=== PATIENT | female | born 1990 | race Two or more races ===

== ENCOUNTER 2016-09-06 21:27 | Observation (INO) | payer MEDICAID ==
[~2016-09-06 21:27] MED LIST: DIPH25CA39; HYDR1CRE95
== END 2016-09-06 22:44 | disposition home or self-care (01) | DRG 566 ==
LOC: LDRP 21:27
PROVIDERS: ADMIT Obstetrics & Gynecology; ATTEND Obstetrics & Gynecology
DX: O26.893 Other specified pregnancy related conditions, third trimester (principal); R10.2 Pelvic and perineal pain; Z3A.33 33 weeks gestation of pregnancy
CPT/HCPCS: 59025; 81002; G0378

== ENCOUNTER 2016-09-11 09:50 | Observation (INO) | payer MEDICAID | END 2016-09-11 11:17 | disposition home or self-care (01) | DRG 566 | LOC: LDRP 09:50 | PROVIDERS: ADMIT Specialist; ATTEND Specialist | DX: O46.93 Antepartum hemorrhage, unspecified, third trimester (principal); O36.8130 Decreased fetal movements, third trimester, not applicable or unspecified; Z3A.34 34 weeks gestation of pregnancy | CPT/HCPCS: 59025; 76818; 81002; G0378 ==

== ENCOUNTER 2016-10-22 21:20 | Inpatient (IN) | payer MEDICAID ==
[~2016-10-22] VITALS: Ht 152.4 cm; Wt 89.8 kg
[2016-10-22] MEDS ORDERED: LACTATED RINGER'S 1,000 ML IV SCH (22:18)
[2016-10-22] MEDS ORDERED: LACT. RINGERS/OXYTOCIN 20UNITS 1,000 ML IV SCH (22:18)
[2016-10-22] MEDS ORDERED: WITCH HAZEL-GLYCERIN PAD TOP PRN (22:30)
[2016-10-22] MEDS ORDERED: PHISODERM TOP SOLN 240ML BTL TOP PRN (22:30)
[2016-10-22] MEDS ORDERED: DERMOPLAST 60ML BOTTLE TOP PRN (22:30)
[2016-10-22] MEDS ORDERED: LIDOCAINE 2%HCL (LOCAL ANESTH.) INJ 20ML MDV IJ ONE (22:30)
[2016-10-22] MEDS ORDERED: PROMETHAZINE HCL 25 MG/ML 1ML IV PRN (22:30)
[2016-10-22] MEDS ORDERED: METHYLERGONOVINE MALEATE 0.2 MG/ML AMP IM PRN (22:30)
[2016-10-22] MEDS ORDERED: NALBUPHINE HCL 10 MG/1ml INJECTION IV PRN (22:30)
[2016-10-22] MEDS ORDERED: CARBOPROST TROMETHAMINE 250 MCG/1ML VIAL IM PRN (22:30)
[2016-10-22 22:52] LABS: Basophils # (auto) 0 uL; Basophils % (auto) 0.2 % (0.0-2.0); Eosinophils # (auto) 0 uL; Eosinophils % (auto) 0.5 % (0.0-7.0); Hematocrit 39.1 % (36.0-46.0); Hemoglobin 13.3 g/dL (12.2-16.2); Lymphocytes % (auto) 22.8 % (10.0-50.0); Mean Corpuscular Hemoglobin 32.2 pg (28.0-32.0); Mean Corpuscular Volume 94.6 fL (80.0-100.0); Mean Platelet Volume 8.7 fL (7.4-10.4); Monocytes # (auto) 0.6 uL; Monocytes % (auto) 6.7 % (0.0-12.0); Neutrophils # (auto) 6.1 uL; Neutrophils % (auto) 69.8 % (37.0-80.0); Platelet Count (auto) 195 10^3/uL (140-450); Red Cell Distribution Width 13.6 % (11.6-16.0); White Blood Cell 8.7 10^3/uL (4.4-10.8)
[2016-10-22 23:10] LABS: Urine Bilirubin Negative (Negative); Urine Blood Negative /uL (Negative); Urine Color Yellow (Yellow); Urine Glucose Normal (Normal); Urine Ketone Negative (Negative); Urine Nitrite Negative (Negative); Urine RBC 1 /hpf (0 - 4); Urine Squamous Epithelial Cell FEW /hpf (<5); Urine Urobilinogen Normal (Negative)
[2016-10-22 23:11] LABS: INR 0.99 (0.9-1.15); Partial Thromboplastin Time 28.2 sec (22.64-33.71); Prothrombin Time 10.2 sec (9.37-12.3)
[2016-10-22 23:20] LABS: Albumin 2.9 g/dL (3.4-5.0); BUN/Creatinine Ratio 18.1; Calcium 8.8 mg/dL (8.5-10.1)
[2016-10-22 23:35] LABS: Bilirubin, Total 0.2 mg/dL (0.2-1.0); Potassium 4.1 mmol/L (3.5-5.1); Total Protein 6.8 g/dL (6.4-8.2)
[2016-10-23] MEDS ORDERED: ACETAMINOPHEN 325 MG TAB PO PRN (13:45)
[2016-10-23] MEDS ORDERED: IBUPROFEN 600 MG TAB PO PRN (13:45)
[2016-10-23 16:30] VITALS: BP 137/63
[2016-10-23 19:50] VITALS: BP 123/60
[2016-10-23] MEDS: IBUPROFEN 800 MG TAB PO PRN (20:40)
[2016-10-24 00:02] VITALS: BP 125/78
[2016-10-24 03:50] VITALS: BP 110/59
[2016-10-24] MEDS: IBUPROFEN 800 MG TAB PO PRN (06:51)
[2016-10-24 08:08] VITALS: BP 119/56
[2016-10-24] MEDS ORDERED: PREN-96 PO (12:24)
[2016-10-24] MEDS ORDERED: fentaNYL CITRATE 100 MCG/2 ML VL IV ONE (13:00)
[2016-10-24] MEDS ORDERED: ePHEDrine SULFATE 50 MG/ML AMP IV ONE (13:00)
[2016-10-24] MEDS ORDERED: fentaNYL W ROPIVACAINE 150 ML EPI SCH (13:00)
[2016-10-24] MEDS ORDERED: LIDOCAINE HCL 2 %PF INJ 10ML AMP IJ PRN (13:00)
[2016-10-24] MEDS ORDERED: NALOXONE HCL 0.4 MG/ML VIAL IV ONE (13:00)
== END 2016-10-24 14:20 | disposition home or self-care (01) | DRG 560 ==
LOC: LDRP 21:20
PROVIDERS: ADMIT Specialist; ATTEND Internal Medicine
PROC: 10907ZC Drainage of Amniotic Fluid, Therapeutic from Products of Conception, Via Natural or Artificial Opening (ICD-10-PCS; principal; 2016-10-22)
PROC: 10E0XZZ Delivery of Products of Conception, External Approach (ICD-10-PCS; 2016-10-22)
PROC: 0UQMXZZ Repair Vulva, External Approach (ICD-10-PCS; 2016-10-22)
PROC: 3E033VJ Introduction of Other Hormone into Peripheral Vein, Percutaneous Approach (ICD-10-PCS; 2016-10-22)
DX: O71.82 Other specified trauma to perineum and vulva (principal); Z37.0 Single live birth; Z3A.40 40 weeks gestation of pregnancy
CPT/HCPCS: 36415; 51702; 59025; 59409; 80053; 81001; 81002; 85025; 85610; 85730; 86850; 86900; 86901; 96365; 96366; 96372; G0434; J2590

== ENCOUNTER 2018-04-11 17:45 | Observation (INO) | payer MEDICAID, OTHER ==
[~2018-04-11] VITALS: Ht 157.5 cm; Wt 93.0 kg
[~2018-04-11 17:45] MED LIST changes: -DIPH25CA39; -HYDR1CRE95; +PREN-96 PO
== END 2018-04-11 21:14 | disposition home or self-care (01) | DRG 566 ==
LOC: LDRP 17:45
PROVIDERS: ADMIT Specialist; ATTEND Specialist
DX: O26.893 Other specified pregnancy related conditions, third trimester (principal); R10.9 Unspecified abdominal pain; Z3A.32 32 weeks gestation of pregnancy
CPT/HCPCS: 59025; 81002; G0378

== ENCOUNTER 2018-05-31 12:25 | Observation (INO) | payer MEDICAID | END 2018-05-31 13:45 | disposition home or self-care (01) | DRG 566 | LOC: LDRP 12:25 | PROVIDERS: ADMIT Obstetrics & Gynecology; ATTEND Obstetrics & Gynecology | DX: O48.0 Post-term pregnancy (principal); Z87.891 Personal history of nicotine dependence | CPT/HCPCS: 59025; 76818; 81002; 82948; G0378 ==

== ENCOUNTER 2018-06-02 12:05 | Observation (INO) | payer MEDICAID | END 2018-06-02 14:15 | disposition home or self-care (01) | DRG 566 | LOC: LDRP 12:05 | PROVIDERS: ADMIT Obstetrics & Gynecology; ATTEND Obstetrics & Gynecology | DX: O48.0 Post-term pregnancy (principal); O62.9 Abnormality of forces of labor, unspecified; Z3A.40 40 weeks gestation of pregnancy | CPT/HCPCS: 59025; 76818; G0378 ==

== ENCOUNTER 2018-06-03 15:19 | Inpatient (IN) | payer MEDICAID ==
[2018-06-02] MEDS: LACTATED RINGER'S 1,000 ML IV SCH (23:15)
[~2018-06-03] VITALS: Ht 157.5 cm; Wt 86.2 kg
[2018-06-03] MEDS ORDERED: LACT. RINGERS/OXYTOCIN 20UNITS 1,000 ML IV SCH (22:53)
[2018-06-03] MEDS ORDERED: METHYLERGONOVINE MALEATE 0.2 MG/ML AMP IM PRN (23:00)
[2018-06-03] MEDS ORDERED: DERMOPLAST 60ML BOTTLE TOP PRN (23:00)
[2018-06-03] MEDS ORDERED: LIDOCAINE 2% (LOCAL ANESTH.) PF 5ml SDV ID PRN (23:00)
[2018-06-03] MEDS ORDERED: WITCH HAZEL-GLYCERIN PAD TOP PRN (23:00)
[2018-06-03] MEDS ORDERED: PHISODERM TOP SOLN 240ML BTL TOP PRN (23:00)
[2018-06-03 23:37] LABS: Basophils # (auto) 0 uL; Basophils % (auto) 0.3 % (0.0-2.0); Eosinophils # (auto) 0.1 uL; Eosinophils % (auto) 0.7 % (0.0-7.0); Hematocrit 42.2 % (36.0-46.0); Hemoglobin 14.1 g/dL (12.2-16.2); Lymphocytes # (auto) 2.4 uL; Lymphocytes % (auto) 29.7 % (10.0-50.0); Mean Corpuscular Hemoglobin 32.2 pg (28.0-32.0); Mean Corpuscular Hgb Conc. 33.4 g/dL (32.0-36.0); Mean Corpuscular Volume 96.4 fL (80.0-100.0); Monocytes # (auto) 0.5 uL; Monocytes % (auto) 6.7 % (0.0-12.0); Neutrophils # (auto) 5.1 uL; Neutrophils % (auto) 62.6 % (37.0-80.0); Nucleated Red Blood Cells % 0.1 %; Platelet Count (auto) 216 10^3/uL (140-450); Red Blood Cells 4.38 10^6/uL (4.0-5.20); Red Cell Distribution Width 13.2 % (11.8-14.3); White Blood Cell 8.2 10^3/uL (4.4-10.8)
[2018-06-03 23:44] LABS: INR 0.87 (0.9-1.15); Partial Thromboplastin Time 26.6 sec (23.78-33.04); Prothrombin Time 9.4 sec (9.27-12.13)
[2018-06-03] MEDS ORDERED: BUTORPHANOL TARTRATE 2 MG/1 ML VIAL IV PRN (23:45)
[2018-06-03 23:48] LABS: Albumin 2.7 g/dL (3.4-5.0); BUN/Creatinine Ratio 13.8; Calcium 8.6 mg/dL (8.5-10.1)
[2018-06-03 23:51] LABS: Bilirubin, Total 0.3 mg/dL (0.2-1.0); Total Protein 6.7 g/dL (6.4-8.2)
[2018-06-04 00:36] LABS: Urine Bacteria NONE SEEN /hpf (None Seen); Urine Blood Negative /uL (Negative); Urine WBC <1 /hpf (0 - 5)
[2018-06-04 01:04] LABS: Alcohol, Urine < 3.0 mg/dL (0-5); Amphetamine Screen, Urine NEGATIVE (NEGATIVE); Barbiturate Scree,Urine NEGATIVE (NEGATIVE); Benzodiazephine Screen, Urine NEGATIVE (NEGATIVE); Cannabinoid Screen, Urine NEGATIVE (NEGATIVE); Cocaine Screen, Urine NEGATIVE (NEGATIVE); Opiate Scree,Urine NEGATIVE (NEGATIVE); Phencyclidine Screen, Urine NEGATIVE (NEGATIVE)
[2018-06-04] MEDS: LACTATED RINGER'S 1,000 ML IV SCH (01:28)
[2018-06-04] MEDS ORDERED: fentaNYL W ROPIVACAINE 150 ML EPI SCH (01:30)
[2018-06-04] MEDS ORDERED: ePHEDrine SULFATE 50 MG/ML AMP IV ONE (01:30)
[2018-06-04] MEDS ORDERED: NALOXONE HCL 0.4 MG/ML VIAL IV ONE (01:30)
[2018-06-04] MEDS ORDERED: ONDANSETRON HCL 4 MG/2 ML VIAL ONE (02:17)
[2018-06-04] MEDS ORDERED: ONDANSETRON HCL 4 MG/2 ML VIAL IV PRN (02:30)
[2018-06-04] MEDS ORDERED: ACETAMINOPHEN 325 MG TAB PO PRN (08:15)
[2018-06-04 11:00] VITALS: BP 126/64
[2018-06-04] MEDS: IBUPROFEN 600 MG TAB PO PRN ×3 (12:36→20:04)
[2018-06-04 15:00] VITALS: BP 114/57
[2018-06-04 19:00] VITALS: BP 110/61
[2018-06-04 23:04] VITALS: BP 130/75
[2018-06-05 03:10] VITALS: BP 113/59
[2018-06-05] MEDS: IBUPROFEN 600 MG TAB PO PRN ×2 (03:11→08:22)
[2018-06-05 05:06] LABS: RPR Non Reactive (Non Reactive)
[2018-06-05 07:20] VITALS: BP 116/80
[2018-06-05] MEDS ORDERED: DOCUSATE CALCIUM 240 MG CAP PO SCH (10:00)
[2018-06-05 11:14] VITALS: BP 122/63
== END 2018-06-05 13:10 | disposition home or self-care (01) | DRG 560 ==
LOC: LDRP 22:48
PROVIDERS: ADMIT Specialist; ATTEND Specialist
PROC: 10E0XZZ Delivery of Products of Conception, External Approach (ICD-10-PCS; principal; 2018-06-04)
PROC: 3E0R3BZ Introduction of Anesthetic Agent into Spinal Canal, Percutaneous Approach (ICD-10-PCS; 2018-06-04)
PROC: 00HU33Z Insertion of Infusion Device into Spinal Canal, Percutaneous Approach (ICD-10-PCS; 2018-06-04)
PROC: 0HQ9XZZ Repair Perineum Skin, External Approach (ICD-10-PCS; 2018-06-04)
PROC: 0UQMXZZ Repair Vulva, External Approach (ICD-10-PCS; 2018-06-04)
DX: O48.0 Post-term pregnancy (principal); O70.0 First degree perineal laceration during delivery; O77.0 Labor and delivery complicated by meconium in amniotic fluid; O71.82 Other specified trauma to perineum and vulva; Z37.0 Single live birth; Z3A.40 40 weeks gestation of pregnancy
CPT/HCPCS: 36415; 51702; 59025; 59409; 80053; 80307; 81001; 85025; 85610; 85730; 86592; 86850; 86900; 86901; 96361; 96365; 96366; 96372; 96374; G0378; J2001; J2405; J2590; J3010

== ENCOUNTER → 2018-09-04 | Day surgery (SDC) | payer MEDICAID ==
[~2018-09-04] VITALS: Ht 157.5 cm; Wt 81.6 kg
[~2018-09-04] MED LIST changes: +FERRIC SUBSULFATE TOPICAL SOLN 30 ML BTL ONE; +HYDROmorphone HCL 2 MG/ML VL IV PRN; +IBUP800T24 PO; +IODINE STRONG 5% SOLN 473ML ONE; +LACTATED RINGER'S 1,000 ML IV SCH; +LIDOCAINE 1% HCL (LOCAL ANESTH.) INJ 20ML MDV ONE; +LIDOCAINE HCL 2% TOP JELLY 5ML TOP ONE; +METOCLOPRAMIDE HCL 5MG/ml INJ 2ml VIAL ONE; +MIDAZOLAM HCL 1MG/1ML-2 ML VIAL ONE; +NALOXONE HCL 0.4 MG/ML VIAL IV PRN; +ONDANSETRON HCL 4 MG/2 ML VIAL IV ONE; +ONDANSETRON HCL 4 MG/2 ML VIAL IV PRN; -PREN-96 PO; +PROPOFOL 10 MG/ML 20 ML IV ONE; +SUCCINYLCHOLINE CHLORIDE 20 MG/ML 10ML VIAL IV ONE; +ceFAZolin 1GM/50ML 50 ML IV ONE; +fentaNYL CITRATE 100 MCG/2 ML VL ONE
[2018-09-04 09:13] VITALS: BP 116/70
== END | disposition home or self-care (01) ==
LOC: SUR 06:14
PROVIDERS: ATTEND Obstetrics & Gynecology
DX: D26.1 Other benign neoplasm of corpus uteri (principal); R87.613 High grade squamous intraepithelial lesion on cytologic smear of cervix (HGSIL); E66.9 Obesity, unspecified; F17.210 Nicotine dependence, cigarettes, uncomplicated; Z68.32 Body mass index [BMI] 32.0-32.9, adult; Z82.49 Family history of ischemic heart disease and other diseases of the circulatory system; Z83.3 Family history of diabetes mellitus; Z79.1 Long term (current) use of non-steroidal anti-inflammatories (NSAID)
CPT/HCPCS: 57522; J1170; J2765; J3010; 86850; 86900; 86901; J0330; J0690; J2001; J2250; J2704

== ENCOUNTER 2022-02-10 14:57 | Observation (INO) | payer MEDICAID ==
[~2022-02-10] VITALS: Ht 157.5 cm; Wt 85.3 kg
[~2022-02-10 14:57] MED LIST changes: -FERRIC SUBSULFATE TOPICAL SOLN 30 ML BTL ONE; -HYDROmorphone HCL 2 MG/ML VL IV PRN; -IBUP800T24 PO; +IBUP800T27 PO; -IODINE STRONG 5% SOLN 473ML ONE; -LACTATED RINGER'S 1,000 ML IV SCH; -LIDOCAINE 1% HCL (LOCAL ANESTH.) INJ 20ML MDV ONE; -LIDOCAINE HCL 2% TOP JELLY 5ML TOP ONE; -METOCLOPRAMIDE HCL 5MG/ml INJ 2ml VIAL ONE; -MIDAZOLAM HCL 1MG/1ML-2 ML VIAL ONE; -NALOXONE HCL 0.4 MG/ML VIAL IV PRN; -ONDANSETRON HCL 4 MG/2 ML VIAL IV ONE; -ONDANSETRON HCL 4 MG/2 ML VIAL IV PRN; -PROPOFOL 10 MG/ML 20 ML IV ONE; -SUCCINYLCHOLINE CHLORIDE 20 MG/ML 10ML VIAL IV ONE; -ceFAZolin 1GM/50ML 50 ML IV ONE; -fentaNYL CITRATE 100 MCG/2 ML VL ONE
[2022-02-10] MEDS ORDERED: BETAMETHASONE ACET (30mg/5ml) 5ml Vial 6mg/ml IM ONE (15:45)
[2022-02-10] MEDS ORDERED: PREN-96 PO (16:22)
[2022-02-10] MEDS ORDERED: METF-370 PO (16:23)
[2022-02-10] MEDS ORDERED: GLYB1.257 PO (16:30)
[2022-02-11] MEDS ORDERED: NIF10C PO ×2 (17:25)
== END 2022-02-10 17:10 | disposition home or self-care (01) ==
LOC: LDRP 14:57 → UNDOADMOB 14:57 → LDRP 15:00
PROVIDERS: ADMIT Obstetrics & Gynecology; ATTEND Obstetrics & Gynecology
DX: O60.03 Preterm labor without delivery, third trimester (principal); O24.419 Gestational diabetes mellitus in pregnancy, unspecified control; O26.879 Cervical shortening, unspecified trimester; Z3A.29 29 weeks gestation of pregnancy
CPT/HCPCS: 59025; 76818; 81002; 82962; 96372; G0378; J0702

== ENCOUNTER 2022-02-11 16:35 | Observation (INO) | payer MEDICAID ==
[~2022-02-11] VITALS: Ht 30.5 cm; Wt 0.5 kg
[~2022-02-11 16:35] MED LIST changes: +GLYB1.257 PO; +METF-370 PO; +PREN-96 PO
[2022-02-11] MEDS ORDERED: BETAMETHASONE ACET (30mg/5ml) 5ml Vial 6mg/ml IM ONE (16:45)
[2022-02-11] MEDS ORDERED: NIF10C PO ×2 (17:25)
== END 2022-02-11 19:32 | disposition home or self-care (01) ==
LOC: LDRP 16:35
PROVIDERS: ADMIT Obstetrics & Gynecology Obstetrics; ATTEND Obstetrics & Gynecology Obstetrics
DX: O26.873 Cervical shortening, third trimester (principal); O60.03 Preterm labor without delivery, third trimester; Z3A.29 29 weeks gestation of pregnancy; Z79.899 Other long term (current) drug therapy
CPT/HCPCS: 59025; 76815; 76817; 81002; 82948; 82962; 94760; 96372; G0378

== ENCOUNTER 2022-02-15 07:28 | Observation (INO) | payer MEDICAID ==
[~2022-02-15] VITALS: Ht 157.5 cm; Wt 85.3 kg
[~2022-02-15 07:28] MED LIST changes: +NIF10C PO
[2022-02-15] MEDS ORDERED: NIF10C PO (16:30)
== END 2022-02-15 16:40 | disposition home or self-care (01) ==
LOC: LDRP 13:55 → UNDOADMOB 13:56 → LDRP 13:56
PROVIDERS: ADMIT Obstetrics & Gynecology; ATTEND Obstetrics & Gynecology
DX: O24.419 Gestational diabetes mellitus in pregnancy, unspecified control (principal); O60.03 Preterm labor without delivery, third trimester; O62.9 Abnormality of forces of labor, unspecified; Z3A.30 30 weeks gestation of pregnancy; Z79.899 Other long term (current) drug therapy
CPT/HCPCS: 59025; 76818; 81002; 82948; 82962; 94760; G0378

== ENCOUNTER 2022-02-21 07:18 | Observation (INO) | payer MEDICAID | END 2022-03-08 15:02 | disposition home or self-care (01) | LOC: LDRP 03-08 12:17 → UNDOADMOB 03-08 12:29 → UNDODISOB 03-08 15:02 | PROVIDERS: ADMIT Obstetrics & Gynecology; ATTEND Obstetrics & Gynecology | DX: O24.419 Gestational diabetes mellitus in pregnancy, unspecified control (principal); O26.873 Cervical shortening, third trimester; Z3A.33 33 weeks gestation of pregnancy; Z87.891 Personal history of nicotine dependence | CPT/HCPCS: 59025; 76817; 76818; 81002; 82948; 82962; 94760; G0378 ==

== ENCOUNTER 2022-02-24 17:03 | Observation (INO) | payer MEDICAID | END 2022-03-05 15:45 | disposition left against medical advice (07) | LOC: LDRP 03-05 15:15 | PROVIDERS: ADMIT Obstetrics & Gynecology; ATTEND Obstetrics & Gynecology | DX: O24.419 Gestational diabetes mellitus in pregnancy, unspecified control (principal); O26.873 Cervical shortening, third trimester; Z3A.34 34 weeks gestation of pregnancy; Z87.891 Personal history of nicotine dependence ==

== ENCOUNTER 2022-03-11 13:36 | Observation (INO) | payer MEDICAID | END 2022-03-11 16:19 | disposition home or self-care (01) | LOC: LDRP 13:36 | PROVIDERS: ADMIT Obstetrics & Gynecology; ATTEND Obstetrics & Gynecology | DX: O24.419 Gestational diabetes mellitus in pregnancy, unspecified control (principal); O26.873 Cervical shortening, third trimester; Z3A.33 33 weeks gestation of pregnancy | CPT/HCPCS: 59025; 76817; 76818; 81002; 82948; 82962; 94760; G0378 ==